=== PATIENT | female | born 1990 | race Caucasian/White ===

== ENCOUNTER 2020-07-03 07:46 | Emergency (ER) | payer MEDICAID ==
[~2020-07-03] VITALS: Ht 157.5 cm; Wt 54.5 kg
[2020-07-03 07:52] VITALS: Ht 157.5 cm; Wt 54.5 kg
[2020-07-03 08:23] LABS: BASOPHILS 0.1 % (0-2); EOSINOPHILS 0.1 % (0-7); HEMATOCRIT 40.3 % (36.0-48.0); IMMATURE GRANULOCYTES 0.4 % (0-5); LYMPHOCYTES 6.5 % (15-50); MCH 30.7 pg (26.0-34.0); MCHC 32.3 g/dL (31.0-37.0); MONOCYTES 7.1 % (2-11); NEUTROPHILS 85.8 % (40-80); PLATELET COUNT 327 10x3/uL (130-400); RBC 4.24 10x6/uL (4.00-5.40)
[2020-07-03 08:34] LABS: CALC OSMOLALITY 267 mosm/kg (275-300); CARBON DIOXIDE 25.6 mmol/L (21.0-32.0); CHLORIDE - SERUM 101 mmol/L (98-107); CREATININE - SERUM 0.9 mg/dL (0.6-1.3); GLUCOSE 103 mg/dL (74-106); POTASSIUM - SERUM 3.7 mmol/L (3.5-5.1); SODIUM 134 mmol/L (136-145); UREA NITROGEN 12 mg/dL (7-18); eGFR NON AFRICAN AMERICAN 77 mL/min (90-120)
[2020-07-03 08:37] LABS: HCG SERUM NEGATIVE (NEGATIVE)
[2020-07-03 08:41] LABS: ALBUMIN 3.9 g/dL (3.4-5.0); ALKALINE PHOSPHATASE 70 U/L (30-120); ALT (SGPT) 18 U/L (10-68); BILIRUBIN - TOTAL 0.61 mg/dL (0.2-1.3)
[2020-07-03 08:54] LABS: BILIRUBIN NEGATIVE (NEGATIVE); KETONE NEGATIVE (NEGATIVE); NITRITE POSITIVE (NEGATIVE)
[2020-07-03 08:55] LABS: BACTERIA MANY HPF (NONE SEEN); EPITHELIAL CELLS 0-5 /hpf (0-5); WHITE CELLS - URINE >50 HPF (0-4)
[2020-07-03] MEDS ORDERED: HYDROCODON-ACE1 EAC7 PO (10:57)
[2020-07-03] MEDS ORDERED: ZOFRAN ODT4 MG/UDTAB PO (10:57)
[2020-07-03] MEDS ORDERED: MACROBID100 MG PO (10:57)
[2020-07-03] MEDS ORDERED: KEFLEX500 MG PO (10:57)
[2020-07-03 11:40] VITALS: BP 93/54
== END 2020-07-03 11:40 | disposition home or self-care (01) ==
LOC: D.ER 07:46
PROVIDERS: Family Medicine
DX: N12 Tubulo-interstitial nephritis, not specified as acute or chronic (principal); R10.9 Unspecified abdominal pain; N20.0 Calculus of kidney